=== PATIENT | male | born 1970 | race Caucasian/White ===

== ENCOUNTER 2016-08-28 18:37 | Inpatient (IN) | payer OTHER ==
[~2016-08-28] VITALS: Ht 167.6 cm; Wt 76.4 kg
[2016-08-28 21:11] LABS: BASOPHIL % 0.6 % (0-2); PLATELET COUNT 247 x10^3mcL (130-400); RED CELL DISTRIBUTION WIDTH 12.9 % (11.5-14.5)
[2016-08-28 21:18] LABS: ALBUMIN 3.5 g/dL (3.4-5.0); ALKALINE PHOSPHATASE 98 U/L (46-116); ALT/SGPT 18 U/L (16-63); AMYLASE 44 U/L (25-115); AST/SGOT 7 U/L (15-37); BILIRUBIN TOTAL 0.44 mg/dL (0.20-1.00); CARBON DIOXIDE 28.5 mmol/L (21-32); CHLORIDE SERUM 94 mmol/L (98-107); CREATININE SERUM 1.2 mg/dL (0.7-1.3); GFR1 > 60 mL/min; LIPASE 249 IU/L (73-393); POTASSIUM SERUM 4.6 mmol/L (3.5-5.1); SODIUM SERUM 131 mmol/L (136-145); TOTAL PROTEIN, SERUM 7.7 g/dL (6.4-8.2)
[2016-08-28 21:21] LABS: GLUCOSE SERUM 492 mg/dL (74-106)
[2016-08-28] MEDS ORDERED: INVOKANA100 MG PO (23:04)
[2016-08-28] MEDS ORDERED: ZESTRIL20 MG PO (23:04)
[2016-08-28] MEDS ORDERED: GLUCOPHAGE XR500 MG PO (23:04)
[2016-08-28] MEDS ORDERED: MULTI-VITAMINS1 TAB PO (23:05)
[2016-08-28] MEDS ORDERED: GOOD SENSE OMEP20 MG PO (23:05)
[2016-08-29 00:42] VITALS: BP 149/101
[2016-08-29 00:45] VITALS: Ht 167.6 cm; Wt 76.4 kg
[2016-08-29 01:31] LABS: T3 TOTAL 0.76 ng/mL
[2016-08-29 01:32] LABS: FREE T4 1.02 ng/dL (0.76-1.46); FREE THYROXINE INDEX 2.7 ug/dL (1.4-4.5); HDL CHOLESTEROL 42 mg/dL (40-60); T4(THYROXINE) 7.4 ug/dL (4.7-13.3)
[2016-08-29 01:37] LABS: CHOLESTEROL 244 mg/dL (<200); CHOLESTEROL/HDL RATIO 5.8; TRIGLYCERIDES 554 mg/dL (<150)
[2016-08-29 05:50] VITALS: BP 139/88
[2016-08-29 06:21] LABS: BASOPHIL % 0.8 % (0-2); PLATELET COUNT 220 x10^3mcL (130-400); RED CELL DISTRIBUTION WIDTH 12.4 % (11.5-14.5)
[2016-08-29 06:28] LABS: CALCIUM 8.5 mg/dL (8.5-10.1); CARBON DIOXIDE 27.2 mmol/L (21-32); CHLORIDE SERUM 105 mmol/L (98-107); GFR1 > 60 mL/min; GLUCOSE SERUM 142 mg/dL (74-106); MAGNESIUM 1.5 mg/dL (1.8-2.4); PHOSPHOROUS 3.7 mg/dL (2.5-4.9); POTASSIUM SERUM 3.6 mmol/L (3.5-5.1); SODIUM SERUM 141 mmol/L (136-145)
[2016-08-29 10:15] VITALS: BP 129/87
[2016-08-29 17:50] VITALS: BP 113/69
[2016-08-29 21:15] VITALS: BP 105/68
[2016-08-30 05:38] VITALS: BP 112/73
[2016-08-30 05:54] LABS: BASOPHIL % 0.3 % (0-2); PLATELET COUNT 255 x10^3mcL (130-400); RED CELL DISTRIBUTION WIDTH 12.7 % (11.5-14.5)
[2016-08-30 06:21] LABS: CALCIUM 8.5 mg/dL (8.5-10.1); CHLORIDE SERUM 102 mmol/L (98-107); CREATININE SERUM 0.9 mg/dL (0.7-1.3); GFR1 > 60 mL/min; GLUCOSE SERUM 268 mg/dL (74-106); MAGNESIUM 1.5 mg/dL (1.8-2.4); SODIUM SERUM 136 mmol/L (136-145)
[2016-08-30 08:00] VITALS: BP 114/79
[2016-08-30] MEDS ORDERED: NOR10T PO (10:48)
[2016-08-30] MEDS ORDERED: COLACE100 MG PO (10:48)
[2016-08-30] MEDS ORDERED: GAS RELIEF 8080 MG PO (10:49)
[2016-08-30] MEDS ORDERED: GLU850 PO (10:50)
[2016-08-30 12:42] LABS: microscopic required? NO
[2016-08-30 12:51] LABS: UA SPECIFIC GRAVITY 1.015 (1.005-1.035); urine erythrocyte NEGATIVE (NEGATIVE)
[2016-08-30 13:30] VITALS: BP 112/73
[2016-08-31] MEDS ORDERED: ZOF4 PO (19:08)
[2016-08-31] MEDS ORDERED: NOR10T PO (19:08)
== END 2016-08-30 16:25 | disposition home or self-care (01) | DRG 341 ==
LOC: ED 18:37 → DU 23:58 → MU 08-29 00:24 → DU 08-29 00:26 → MU 08-29 14:13
PROVIDERS: Emergency Medicine; Family Medicine; Surgery; ADMIT Family Medicine
PROC: 0DTJ4ZZ Resection of Appendix, Percutaneous Endoscopic Approach (ICD-10-PCS; principal; 2016-08-29 11:30)
DX: K35.80 Unspecified acute appendicitis (principal); N17.0 Acute kidney failure with tubular necrosis; D68.69 Other thrombophilia; E87.1 Hypo-osmolality and hyponatremia; E83.42 Hypomagnesemia; I10 Essential (primary) hypertension; E78.5 Hyperlipidemia, unspecified; E02 Subclinical iodine-deficiency hypothyroidism; Z79.84 Long term (current) use of oral hypoglycemic drugs; E11.9 Type 2 diabetes mellitus without complications
CPT/HCPCS: 83880; 84439; 94150; J0330; J0690; J0694; J1644; J1815; J1885; J2175; J2250; J2270; J2405; J3010; J3490; J7030; Q0092

== ENCOUNTER 2016-08-30 19:03 | Observation (INO) | payer OTHER ==
[~2016-08-30] VITALS: Ht 167.6 cm; Wt 81.7 kg
[~2016-08-30 19:03] MED LIST: COLACE100 MG PO; GAS RELIEF 8080 MG PO; GLU850 PO; GLUCOPHAGE XR500 MG PO; GOOD SENSE OMEP20 MG PO; INVOKANA100 MG PO; MULTI-VITAMINS1 TAB PO; NOR10T PO; ZESTRIL20 MG PO
[2016-08-30 20:48] LABS: BASOPHIL % 0.6 % (0-2); PLATELET COUNT 283 x10^3mcL (130-400); RED CELL DISTRIBUTION WIDTH 12.9 % (11.5-14.5)
[2016-08-30 21:07] LABS: CALCIUM 8.6 mg/dL (8.5-10.1); CARBON DIOXIDE 27.8 mmol/L (21-32); CHLORIDE SERUM 100 mmol/L (98-107); GFR1 > 60 mL/min; GLUCOSE SERUM 230 mg/dL (74-106); POTASSIUM SERUM 4.1 mmol/L (3.5-5.1); SODIUM SERUM 137 mmol/L (136-145)
[2016-08-30 21:12] LABS: ALKALINE PHOSPHATASE 78 U/L (46-116); ALT/SGPT 16 U/L (16-63); AST/SGOT 24 U/L (15-37); BILIRUBIN TOTAL 0.27 mg/dL (0.20-1.00); TOTAL PROTEIN, SERUM 6.4 g/dL (6.4-8.2)
[2016-08-30 21:14] LABS: ALBUMIN 3.2 g/dL (3.4-5.0)
[2016-08-31] VITALS (7 sets, daily range): BP systolic 123–131; BP diastolic 81–89; Ht 167.6 cm; Wt 81.7 kg
[2016-08-31 02:28] LABS: CHOLESTEROL/HDL RATIO 5.9
[2016-08-31 02:41] LABS: T3 TOTAL 0.96 ng/mL
[2016-08-31 02:42] LABS: FREE T4 1.34 ng/dL (0.76-1.46); T4(THYROXINE) 8.4 ug/dL (4.7-13.3)
[2016-08-31 05:58] LABS: BASOPHIL % 0.6 % (0-2); PLATELET COUNT 217 x10^3mcL (130-400); RED CELL DISTRIBUTION WIDTH 12.6 % (11.5-14.5)
[2016-08-31 06:31] LABS: CALCIUM 8.1 mg/dL (8.5-10.1); CHLORIDE SERUM 103 mmol/L (98-107); GFR1 > 60 mL/min; GLUCOSE SERUM 288 mg/dL (74-106); MAGNESIUM 1.3 mg/dL (1.8-2.4); PHOSPHOROUS 2.8 mg/dL (2.5-4.9); POTASSIUM SERUM 4.1 mmol/L (3.5-5.1); SODIUM SERUM 138 mmol/L (136-145)
[2016-08-31 13:06] LABS: microscopic required? NO
[2016-08-31 13:16] LABS: UA SPECIFIC GRAVITY 1.015 (1.005-1.035); urine erythrocyte NEGATIVE (NEGATIVE)
[2016-08-31] MEDS ORDERED: ZOF4 PO (19:08)
[2016-08-31] MEDS ORDERED: NOR10T PO (19:08)
== END 2016-08-31 21:00 | disposition home or self-care (01) | DRG 948 ==
LOC: ED 19:03 → DU 08-31 00:52
PROVIDERS: Emergency Medicine; Family Medicine; ADMIT Family Medicine
DX: G89.18 Other acute postprocedural pain (principal); D68.69 Other thrombophilia; E44.1 Mild protein-calorie malnutrition; E11.65 Type 2 diabetes mellitus with hyperglycemia; E11.51 Type 2 diabetes mellitus with diabetic peripheral angiopathy without gangrene; E11.59 Type 2 diabetes mellitus with other circulatory complications; E78.5 Hyperlipidemia, unspecified; E83.42 Hypomagnesemia; I10 Essential (primary) hypertension; Z79.84 Long term (current) use of oral hypoglycemic drugs
CPT/HCPCS: 83880; 84439; G0378; J0696; J1200; J1885; J2405; J2550; J3010; J3490; J7030; Q9967

== ENCOUNTER 2017-09-27 17:09 | Emergency (ER) | payer OTHER ==
[~2017-09-27] VITALS: Ht 170.2 cm; Wt 74.8 kg
[~2017-09-27 17:09] MED LIST changes: +ZOF4 PO
[2017-09-27 17:17] VITALS: Ht 170.2 cm; Wt 74.8 kg
[2017-09-27 18:17] LABS: BASOPHIL % 1.5 % (0-2); PLATELET COUNT 239 x10^3mcL (130-400); RED CELL DISTRIBUTION WIDTH 14.1 % (11.5-14.5)
[2017-09-27 18:30] LABS: ALBUMIN 3.4 g/dL (3.4-5.0); ALKALINE PHOSPHATASE 85 U/L (46-116); BILIRUBIN TOTAL 0.3 mg/dL (0.20-1.00); CALCIUM 7.3 mg/dL (8.5-10.1); CARBON DIOXIDE 26.2 mmol/L (21-32); CHLORIDE SERUM 99 mmol/L (98-107); CREATININE SERUM 0.9 mg/dL (0.7-1.3); GFR1 > 60 mL/min; GLUCOSE SERUM 316 mg/dL (74-106); SODIUM SERUM 138 mmol/L (136-145); TOTAL PROTEIN, SERUM 6.9 g/dL (6.4-8.2)
[2017-09-27 18:38] LABS: POTASSIUM SERUM 2.9 mmol/L (3.5-5.1)
[2017-09-27 19:30] LABS: ALT/SGPT 22 U/L (16-63); AST/SGOT 27 U/L (15-37)
[2017-09-28 03:14] VITALS: BP 176/112
== END 2017-09-28 03:14 | disposition home or self-care (01) ==
LOC: ED 17:09
PROVIDERS: Emergency Medicine
DX: F10.129 Alcohol abuse with intoxication, unspecified (principal); F32.9 Major depressive disorder, single episode, unspecified; R07.89 Other chest pain; E87.6 Hypokalemia; I10 Essential (primary) hypertension; E11.9 Type 2 diabetes mellitus without complications; Z90.89 Acquired absence of other organs
CPT/HCPCS: 83880; G0480; J2060; J3411; J3475; J3490; J7030

== ENCOUNTER 2017-11-05 02:15 | Inpatient (IN) | payer OTHER ==
[~2017-11-05] VITALS: Wt 77.6 kg
[2017-11-05] VITALS (7 sets, daily range): BP systolic 129–162; BP diastolic 84–101; Wt 77.6 kg
[2017-11-05 03:41] LABS: PLATELET COUNT 291 x10^3mcL (130-400); RED CELL DISTRIBUTION WIDTH 13.4 % (11.5-14.5)
[2017-11-05 04:25] LABS: BAND NEUTROPHIL 0 % (0-10); BASOPHIL 0 % (0-2); MONOCYTE 3 % (0-7); SEGMENTED NEUTROPHILS 67 % (37-75)
[2017-11-05 04:26] LABS: ALBUMIN 3.4 g/dL (3.4-5.0); ALKALINE PHOSPHATASE 126 U/L (46-116); ALT/SGPT 30 U/L (16-63); AST/SGOT 33 U/L (15-37); BILIRUBIN TOTAL 0.26 mg/dL (0.20-1.00); CALCIUM 8.7 mg/dL (8.5-10.1); CARBON DIOXIDE 22.5 mmol/L (21-32); CHLORIDE SERUM 96 mmol/L (98-107); CREATININE SERUM 1.1 mg/dL (0.7-1.3); FREE T4 0.82 ng/dL (0.76-1.46); GFR1 > 60 mL/min; LIPASE 242 IU/L (73-393); PLATELET MORPHOLOGY PLATELETS NORMAL; POTASSIUM SERUM 3.9 mmol/L (3.5-5.1); SODIUM SERUM 133 mmol/L (136-145); TOTAL PROTEIN, SERUM 7.4 g/dL (6.4-8.2); rbc morphology (normal/abnorm) NORMAL (NORMAL)
[2017-11-05 04:30] LABS: GLUCOSE SERUM 478 mg/dL (74-106)
[2017-11-05 06:53] LABS: microscopic required? YES; urine erythrocyte TRACE (NEGATIVE)
[2017-11-05 06:57] LABS: AMPHETAMINE QUAL UR NONE DETECTED (See below)
[2017-11-05] MEDS ORDERED: METFORMIN HCL500 MG PO (09:28)
[2017-11-05] MEDS ORDERED: LISINOPRIL10 MG PO (09:28)
[2017-11-06 05:50] VITALS: BP 172/101
[2017-11-06 09:15] VITALS: BP 179/129
[2017-11-06 11:33] VITALS: BP 136/93
[2017-11-06 11:34] VITALS: BP 136/93
[2017-11-06 12:29] VITALS: BP 137/95
== END 2017-11-06 13:37 | disposition home or self-care (01) | DRG 639 ==
LOC: ED 02:15 → DU 05:56
PROVIDERS: Emergency Medicine
DX: E11.65 Type 2 diabetes mellitus with hyperglycemia (principal); F10.129 Alcohol abuse with intoxication, unspecified; I10 Essential (primary) hypertension; Z79.4 Long term (current) use of insulin; Z91.14 Patient's other noncompliance with medication regimen; Z90.49 Acquired absence of other specified parts of digestive tract
CPT/HCPCS: 83880; 84439; J1644; J1815; J2060; J7030

== ENCOUNTER 2020-04-15 23:50 | Emergency (ER) | payer OTHER ==
[~2020-04-15] VITALS: Ht 170.2 cm; Wt 74.8 kg
[~2020-04-15 23:50] MED LIST changes: +LISINOPRIL10 MG PO; +METFORMIN HCL500 MG PO
[2020-04-15 23:58] VITALS: Ht 170.2 cm; Wt 74.8 kg
[2020-04-16 00:39] LABS: BASOPHIL % 2.8 % (0.2-1.5); PLATELET COUNT 326 x10^3mcL (152-348); RED CELL DISTRIBUTION WIDTH 15.1 % (12.1-16.2)
[2020-04-16 00:42] LABS: CARBON DIOXIDE 23.2 mmol/L (21-32); CREATININE SERUM 1.5 mg/dL (0.7-1.3); POTASSIUM SERUM 4.2 mmol/L (3.5-5.1)
[2020-04-16 00:48] LABS: ALBUMIN 3.7 g/dL (3.4-5.0); BILIRUBIN TOTAL 0.1 mg/dL (0.20-1.00); MAGNESIUM 1.3 mg/dL (1.8-2.4); TOTAL PROTEIN, SERUM 7.4 g/dL (6.4-8.2)
[2020-04-16 04:58] VITALS: BP 100/53
== END 2020-04-16 04:55 | disposition home or self-care (01) ==
LOC: ED 23:50
PROVIDERS: Emergency Medicine
DX: E83.42 Hypomagnesemia (principal); R25.1 Tremor, unspecified; R10.816 Epigastric abdominal tenderness; I10 Essential (primary) hypertension; E11.9 Type 2 diabetes mellitus without complications; Z90.89 Acquired absence of other organs
CPT/HCPCS: G0480; J2060; J3411; J3475; J3490; J7030